=== PATIENT | female | born 1960 | race Caucasian/White ===

== ENCOUNTER 2017-01-12 10:42 | Inpatient (IN) ==
[2017-01-12] MEDS: SAMSCA PO SCH (12:29)
[2017-01-12] MEDS: NS 1,000 ML IV SCH (12:29)
[2017-01-12] MEDS ORDERED: HEPARIN ONE (13:24)
[2017-01-13] MEDS: NS 1,000 ML IV SCH ×2 (01:15→02:34)
[2017-01-13] MEDS ORDERED: PRILOSEC PO SCH (07:00)
[2017-01-13] MEDS: SAMSCA PO SCH (08:15)
[2017-01-13] MEDS ORDERED: NORCO-10 PO PRN (08:16)
[2017-01-13] MEDS ORDERED: NORCO-10 PO SCH (09:00)
[2017-01-13 11:33] LABS: BASO% 2.6 % (0.0-0.8); EOS# 0.11 X1000 (0.0-0.7); EOS% 2.1 % (0.0-10.0); HEMATOCRIT 30.9 % (37.0-47.0); HEMOGLOBIN 10.6 g/dL (12.0-16.0); IMM GRAN# 0.32 X1000 (0.0-0.04); LYMPH# 1.37 X1000 (1.2-3.4); LYMPH% 25.8 % (20.5-51.1); MANUAL DIFF NEEDED? YES; MCH 35.8 PG (27-31); MCHC 34.3 g/dL (33-37); MCV 104.4 FL (81-99); MONO# 0.76 X1000 (0.11-0.59); MONO% 14.3 % (1.7-9.3); MPV 8.9 FL (7.4-10.4); NEUT% 49.2 % (42.2-75.2); PLT 449 X1000 (130-400); RBC 2.96 XMIL (4.2-5.4)
[2017-01-13 12:09] LABS: AGAP 12; ALBUMIN 3.7 g/dL (3.5-5.0); ALKALINE PHOSPHATASE 68 U/L (32-104); BUN 9 mg/dL (8-22); CALCIUM 8.8 mg/dL (8.8-10.2); CHLORIDE 107 mmol/L (98-107); COSMO 282; GOT 21 U/L (10-30); GPT 13 U/L (10-36); POTASSIUM 4.4 mmol/L (3.5-5.1); SODIUM 142 mmol/L (136-145); TCO2 23 mmol/L (25-35); TOTAL BILIRUBIN < 0.10 mg/dL (0.20-1.00); TOTAL PROTEIN 6.4 g/dL (6.3-8.3)
[2017-01-13 12:12] LABS: BANDS 8 % (0-1); LYMPHS 14 % (21-51); MONO 12 % (1-9)
[2017-01-13 12:30] VITALS: BP 102/47
== END 2017-01-13 14:50 | disposition home or self-care (01) ==
LOC: DIRADM → OBSVTOIN 10:42 → 4N 11:48
PROVIDERS: ADMIT Internal Medicine; ATTEND Internal Medicine